=== PATIENT | female | born 1995 | race Caucasian/White ===

== ENCOUNTER → 2020-08-12 | Outpatient (CLI) | payer OTHER ==
--- NOTE | 2020-08-13 09:34 | XR ---
EXAMINATION TYPE: XR KUB DATE OF EXAM: 08/12/2020 4:43 PM CLINICAL HISTORY: Left-sided kidney stone TECHNIQUE: Single supine KUB image of the abdomen is obtained. COMPARISON: None. FINDINGS: There is a interpolar left renal calculus measuring approximately 7 mm. Left upper pole annie al calculus is tiny measuring up to 2.5 mm. Probable right renal calculus measuring up to 2.5 mm. No definite evidence of ureteral calculi. Stool and gas obscure visualization of the renal contours. Oss eous structures are unremarkable. IMPRESSION: 1. Probable bilateral renal calculi. Largest calculus measures 7 mm at the interpolar region of the l eft kidney.
== END | disposition home or self-care (01) ==
LOC: RADXRMAIN 16:18
PROVIDERS: ATTEND Family Medicine
DX: N20.0 Calculus of kidney (principal)
CPT/HCPCS: 74018